=== PATIENT | male | born 1980 | race Caucasian/White ===

== ENCOUNTER 2020-05-03 18:57 | Emergency (ER) | payer MEDICAID ==
[2020-05-03] MEDS ORDERED: SULFAMETH/TRIMETH DS 800/160 MG TABLET PO STA (19:09)
[2020-05-03] MEDS ORDERED: BUFFERED LIDOCAINE 10 ML SYRINGE SUBQ STA (19:09)
--- NOTE | 2020-05-03 19:11 | ED Physician Documentation ---
PD HPI WOUND RECHECK - Stated complaint Stated Complaint: LT ARM PX/BUG BITE/SWOLLEN - Chief complaint Chief Complaint: Wound - Histroy obtained from History obtained from: Patient (39-year-old gentleman with history of remote MRSA infection presents with a pointed painful lesion on the posterior left forearm over the last few days without fevers. He also has a history of opiate addiction and declines pain medication. The prior MRSA infection was well over 20 years ago.) Review of Systems Constitutional: reports: Reviewed and negative Eyes: reports: Reviewed and negative PD PAST MEDICAL HISTORY - Present Medications Home Medications: Ambulatory Orders Medication Instructions Recorded Confirmed Sulfamethoxazole/Trimethoprim 1 each PO BID 7 Days #20 tablet 05/03/20 [Sulfamethoxazole-Tmp Ds Tablet] - Allergies Allergies/Adverse Reactions: Allergies Allergy/AdvReac Type Severity Reaction Status Date / Time No Known Drug Allergies Allergy Verified 05/03/20 19:00 PD ED PE NORMAL - Vitals Vital signs reviewed: Yes - General General: Alert and oriented X 3, No acute distress - Extremities Extremities: Other (Pointed abscess with significant surrounding cellulitis of the proximal postero-medial forearm. No limited range of motion at the elbow or wrist.) - Neuro Neuro: Alert and oriented X 3, Normal speech Results - Vitals Vitals: Vital Signs - 24 hr 05/03/20 05/03/20 19:00 19:06 Temperature 37.2 C 37.2 C Heart Rate 126 H 124 H Respiratory 20 20 Rate Blood Pressure 196/98 H 196/98 H O2 Saturation 96 96 Oxygen O2 Source Room air Procedures - Abscess I&D (location) Left forearm Preparation: Chlorhexadine, Lidocaine 1% Incision: Incised with scalpel, Purulent drainage, Loculations broken, Packed, Culture obtained Other: Pt tolerated well, Dressing applied, Antibiotic prescribed Departure - Departure Disposition: Home, Self Care Clinical Impression: Abscess Condition: Stable Record reviewed to determine appropriate education?: Yes Instructions: ED Abscess IandD Prescriptions: Sulfamethoxazole/Trimethoprim [Sulfamethoxazole-Tmp Ds Tablet] 1 each PO BID 7 Days #20 tablet Comments: Return on Tuesday for wound check, Packing removal and culture review. Sooner if worsening.
[2020-05-03 20:01] VITALS: BP 168/90
== END 2020-05-03 20:00 | disposition home or self-care (01) ==
LOC: ED 18:57
DX: L02.414 Cutaneous abscess of left upper limb (principal); L03.114 Cellulitis of left upper limb; Z86.14 Personal history of Methicillin resistant Staphylococcus aureus infection
CPT/HCPCS: 10061; 87070; 87077; 87181; 87205; 99283; A9270

== ENCOUNTER 2020-06-21 13:29 | Emergency (ER) | payer MEDICAID ==
[2020-06-21] MEDS ORDERED: CLINDAMYCIN 150 MG CAPSULE PO STA (13:47)
[2020-06-21] MEDS ORDERED: BUFFERED LIDOCAINE 10 ML SYRINGE SUBQ STA (13:47)
--- NOTE | 2020-06-21 13:49 | ED Physician Documentation ---
PD HPI WOUND RECHECK - Stated complaint Stated Complaint: LT ARM PX - Chief complaint Chief Complaint: Wound - Histroy obtained from History obtained from: Patient - Additional information Additional information: He has a history of MRSA and had a MRSA abscess on the proximal left forearm a little over a month ago that was successfully treated with Bactrim. Over the last week he developed a new spot more on the distal left forearm with surrounding redness and cellulitis that was actually worse yesterday than today. No fevers. Review of Systems Constitutional: denies: Fever, Chills Cardiac: reports: Reviewed and negative Respiratory: reports: Reviewed and negative GI: reports: Reviewed and negative PD PAST MEDICAL HISTORY - Past Medical History Cardiovascular: Hypertension Respiratory: None Neuro: None Endocrine/Autoimmune: None GI: None : None HEENT: None Musculoskeletal: Other Derm: None - Past Surgical History Past Surgical History: Yes Ortho: Other - Present Medications Home Medications: Ambulatory Orders Medication Instructions Recorded Confirmed Sulfamethoxazole/Trimethoprim 1 each PO BID 7 Days #20 tablet 05/03/20 [Sulfamethoxazole-Tmp Ds Tablet] Chlorhexidine Gluconate [Hibiclens] 10 ml TP DAILY #1 bot 06/21/20 Clindamycin [Cleocin] 300 mg PO Q6H 14 Days capsule 06/21/20 Mupirocin Calcium [Mupirocin] 1 appful GASPER BID #1 cream..g. 06/21/20 - Allergies Allergies/Adverse Reactions: Allergies Allergy/AdvReac Type Severity Reaction Status Date / Time No Known Drug Allergies Allergy Verified 06/21/20 13:39 - Social History Does the pt smoke?: Yes Smoking Status: Current every day smoker Does the pt drink ETOH?: Yes Does the pt have substance abuse?: No - Immunizations Immunizations are current?: No - POLST Patient has POLST: No PD ED PE NORMAL - Vitals Vital signs reviewed: Yes - General General: Alert and oriented X 3, No acute distress - HEENT HEENT: PERRL, EOMI - Extremities Extremities: Other (There is still a little bit of cellulitis around the previously drained abscess on the proximal left forearm, but there is no f luctuance. There is a new pointed abscess over the distal medial ulna without limited range of motion at the wrist or elbow. There is significant cellulitis though. ) - Neuro Neuro: Alert and oriented X 3, Normal speech Results - Vitals Vitals: Vital Signs - 24 hr 06/21/20 13:33 Temperature 36.7 C Heart Rate 110 H Respiratory 17 Rate Blood Pressure 162/110 H O2 Saturation 100 Oxygen O2 Source Room air Procedures - Abscess I&D (location) L forearm Preparation: Chlorhexadine, Lidocaine 1% Incision: Incised with scalpel, Purulent drainage, Loculations broken, Culture obtained. No: Packed (too small) Other: Pt tolerated well, Dressing applied, Antibiotic prescribed PD MEDICAL DECISION MAKING - ED course ED course: 39-year-old gentleman with recurrent abscess/new abscess on the left forearm which was incised and drained. Assume he is colonized with MRSA and will treat not only with antibiotics at this time but also topical Hibiclens and nasal mupirocin. Departure - Departure Disposition: 01 Home, Self Care Clinical Impression: Abscess Condition: Good Record reviewed to determine appropriate education?: Yes Instructions: ED Abscess IandD Prescriptions: Clindamycin [Cleocin] 300 mg PO Q6H 14 Days capsule Chlorhexidine Gluconate [Hibiclens] 10 ml TP DAILY #1 bot Mupirocin Calcium [Mupirocin] 1 appful GASPER BID #1 cream..g. Comments: We are performing a wound culture, the results should be done in 48-72 hours. If antibiotic change is necessary we will call you. Return if worse in the meantime, especially if you develop increased pain, fevers, cannot keep down the medication. Otherwise follow-up with your physician in approximately 2-3 days.
[2020-06-21 14:16] VITALS: BP 169/91
== END 2020-06-21 14:16 | disposition home or self-care (01) ==
LOC: ED 13:29
DX: L02.414 Cutaneous abscess of left upper limb (principal); L03.114 Cellulitis of left upper limb; Z86.14 Personal history of Methicillin resistant Staphylococcus aureus infection; I10 Essential (primary) hypertension; F17.200 Nicotine dependence, unspecified, uncomplicated
CPT/HCPCS: 10060; 87070; 87181; 87205; 99283; A9270

== ENCOUNTER 2021-08-16 13:30 | Emergency (ER) | payer MEDICAID ==
[2021-08-16 13:48] VITALS: BP 182/90
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
[2021-08-16] MEDS ORDERED: DOXYCYCLINE 100 MG TABLET PO STA (14:22)
== END 2021-08-16 14:44 | disposition home or self-care (01) ==
LOC: ED 13:30
DX: A56.01 Chlamydial cystitis and urethritis (principal); I10 Essential (primary) hypertension; F17.200 Nicotine dependence, unspecified, uncomplicated
CPT/HCPCS: 99282; 99283; A9270

== ENCOUNTER 2021-08-19 07:15 | Outpatient (CLI) | payer MEDICAID | END 2021-08-19 07:16 | disposition short-term general hospital (02) | LOC: EMS 07:15 | DX: S42.301B Unspecified fracture of shaft of humerus, right arm, initial encounter for open fracture (principal); T22.00XA Burn of unspecified degree of shoulder and upper limb, except wrist and hand, unspecified site, initial encounter; W40.9XXA Explosion of unspecified explosive materials, initial encounter; Y92.009 Unspecified place in unspecified non-institutional (private) residence as the place of occurrence of the external cause | CPT/HCPCS: A0425; A0427; A0999 ==

== ENCOUNTER 2023-03-26 19:47 | Emergency (ER) | payer MEDICAID ==
[2023-03-26] MEDS ORDERED: ceFAZolin (2G) 2 GM in SODIUM CHLORIDE 0.9% 100ML 100 ML IV STA (19:48)
[2023-03-26] MEDS ORDERED: HYDROmorphone 1 MG/ML CARPUJECT IVP STA ×2 (19:48→20:06)
[2023-03-26] MEDS ORDERED: SODIUM CHLORIDE 0.9% 1,000 ML IV STA (19:49)
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
[2023-03-26] MEDS ORDERED: ceFAZolin 2 GM VIAL ONE (20:06)
[2023-03-26 20:19] LABS: BASOPHILS # (AUTO) 0.1 10^3/uL (0.0-0.1); BASOPHILS % (AUTO) 0.8 %; EOSINOPHILS # (AUTO) 0.1 10^3/uL (0.0-0.7); EOSINOPHILS % (AUTO) 1.1 %; HCT - HEMATOCRIT 49.3 % (42.0-52.0); HGB - HEMOGLOBIN 16.8 g/dL (14.0-18.0); LYMPHOCYTES # (AUTO) 3.1 10^3/uL (1.5-3.5); LYMPHOCYTES % (AUTO) 29.8 %; MEAN CORPUSCULAR HEMOGLOBIN 30.4 pg (27.0-31.0); MEAN CORPUSCULAR HGB CONC 34.1 g/dL (32.0-36.0); MEAN CORPUSCULAR VOLUME 89.2 fL (80.0-94.0); MEAN PLATELET VOLUME 10.7 fL (7.4-11.4); MONOCYTES # (AUTO) 0.9 10^3/uL (0.0-1.0); MONOCYTES % (AUTO) 8.8 %; NEUTROPHILS # (AUTO) 6.1 10^3/uL (1.5-6.6); NEUTROPHILS % (AUTO) 59.3 %; PLT - PLATELET COUNT 270 10^3/uL (130-450); RED BLOOD COUNT 5.53 10^6/uL (4.70-6.10); RED CELL DISTRIBUTION WIDTH 11.9 % (12.0-15.0); WHITE BLOOD COUNT 10.3 x10^3/uL (4.8-10.8)
[2023-03-26 20:30] LABS: ALBUMIN 4.7 g/dL (3.2-5.5); ALBUMIN/GLOBULIN RATIO 1.7 (1.0-2.2); CALCIUM 9.4 mg/dL (8.5-10.3); POTASSIUM 3.1 mmol/L (3.5-5.0); TOTAL PROTEIN 7.5 g/dL (6.7-8.2)
[2023-03-26 20:42] VITALS: BP 144/81; O2SAT 93
== END 2023-03-26 20:58 | disposition short-term general hospital (02) ==
LOC: ED 19:47
DX: S39.94XA Unspecified injury of external genitals, initial encounter (principal); S71.131A Puncture wound without foreign body, right thigh, initial encounter; Y24.9XXA Unspecified firearm discharge, undetermined intent, initial encounter; I10 Essential (primary) hypertension; F17.200 Nicotine dependence, unspecified, uncomplicated
CPT/HCPCS: 36415; 80053; 83690; 85025; 96374; 96375; 99284; 99285; J1170

== ENCOUNTER 2023-03-26 21:00 | Outpatient (CLI) | payer MEDICAID | END 2023-03-26 21:01 | disposition short-term general hospital (02) | LOC: EMS 21:00 | PROVIDERS: ATTEND Emergency Medicine | DX: S31.33XA Puncture wound without foreign body of scrotum and testes, initial encounter (principal); S71.131A Puncture wound without foreign body, right thigh, initial encounter; W34.00XA Accidental discharge from unspecified firearms or gun, initial encounter | CPT/HCPCS: A0425; A0427; A0999 ==

== ENCOUNTER 2023-04-03 20:22 | Outpatient (CLI) | payer MEDICAID | END 2023-04-03 23:59 | disposition short-term general hospital (02) | LOC: EMS 20:22 | DX: T81.31XA Disruption of external operation (surgical) wound, not elsewhere classified, initial encounter (principal); R58 Hemorrhage, not elsewhere classified; Z90.79 Acquired absence of other genital organ(s); I10 Essential (primary) hypertension; R00.0 Tachycardia, unspecified | CPT/HCPCS: A0425; A0427; A0999 ==